=== PATIENT | female | born 1955 | race African-American/Black ===

== ENCOUNTER 2018-04-19 04:59 | Emergency (ER) | payer MEDICARE ==
[2018-04-19] MEDS ORDERED: fentaNYL* 50 MCG/ML 2 ML VIAL (100 MCG VIAL) IV SLOW PU ONE (05:20)
[2018-04-19] MEDS ORDERED: Ondansetron INJ* 2 MG/ML VIAL IV ONE (05:20)
[2018-04-19] MEDS ORDERED: NS 0.9% 1000 ML* 1,000 ML IV ONE (05:21)
--- NOTE | 2018-04-19 05:25 | ED ---
GI/ HPI - HPI Summary HPI Summary: A 62 y/o female brought in by [facility] ambulance presents to [facility] with a chief complaint of N/V since 01:00 04/19/18. She also c/o upper abdominal pain. She claims that she is on blood thinners for Afib. She takes aspirin. Her pain does not radiate to her back. She is unsure if her gallbladder was removed. She reports eating English food [employer]. She also claims that her pain is more relaxed in the ED. - History of Current Complaint Chief Complaint: EDNauseaVomitDiarrh Time Seen by Provider: 04/19/18 05:12 Stated Complaint: ABD PAIN Hx Obtained From: Patient Onset/Duration: Started Hours Ago, Still Present Timing: Constant, Lasting Hours Severity: Mild Current Severity: Mild Pain Intensity: 0 - out of 10 Location of Pain: RUQ Pain Characteristics: Unable to describe Associated Signs and Symptoms: Positive: Abdominal Pain Aggravating Factor(s): Nothing Alleviating Factor(s): Nothing - Additional Pertinent History Primary Care Physician: RAJNI - Allergy/Home Medications Allergies/Adverse Reactions: Allergies Allergy/AdvReac Type Severity Reaction Status Date / Time codeine Allergy Hives Verified 04/19/18 05:14 ketorolac Allergy Hives Verified 04/19/18 05:14 latex Allergy Rash Verified 04/19/18 05:14 Perfume Allergy Rash Verified 06/15/14 10:50 tramadol Allergy Hives Verified 04/19/18 05:14 PMH/Surg Hx/FS Hx/Imm Hx Endocrine/Hematology History: Denies: Hx Anticoagulant Therapy, Hx Diabetes, Hx Thyroid Disease Cardiovascular History: Reports: Hx Angina, Hx Hypercholesterolemia, Hx Hypertension Denies: Hx Coronary Artery Disease, Hx Myocardial Infarction, Hx Valvular Heart Disease Respiratory History: Reports: Hx Asthma Denies: Hx Chronic Obstructive Pulmonary Disease (COPD) GI History: Denies: Hx Ulcer Musculoskeletal History: Reports: Hx Arthritis - Ankle/Foot Sensory History: Reports: Hx Contacts or Glasses Opthamlomology History: Reports: Hx Contacts or Glasses Neurological History: Reports: Hx Migraine Psychiatric History: Reports: Hx Inpatient Treatment, Other Psychiatric Issues/ Disorders - History of psychotic disorder Denies: Hx Anxiety, Hx Attention Deficit Hyperactivity Disorder, Hx Eating Disorder, Hx Depression, Hx Panic Disorder, Hx Post Traumatic Stress Disorder, Hx Community Mental Health Tx, Hx Schizophrenia, Hx Bipolar Disorder, Hx Suicide Attempt, Hx of Violent Episodes Against Others, Hx Substance Abuse - Cancer History Hx Chemotherapy: No Hx Radiation Therapy: No - Immunization History Date of Tetanus Vaccine: PT STATES UNSURE Date of Influenza Vaccine: PT STATES UNSURE Infectious Disease History: No Infectious Disease History: Denies: Hx Clostridium Difficile, Hx Hepatitis, Hx Human Immunodeficiency Virus (HIV), Hx of Known/Suspected MRSA, Hx Shingles, Hx Tuberculosis, Hx Known/ Suspected VRE, Hx Known/Suspected VRSA, History Other Infectious Disease, Traveled Outside the [place] in Last 30 Days - Social History Alcohol Use: Rare Substance Use Type: Reports: None Smoking Status (MU): Former Smoker Review of Systems Negative: Shortness Of Breath Positive: Abdominal Pain, Vomiting, Nausea All Other Systems Reviewed And Are Negative: Yes Physical Exam - Summary Physical Exam Summary: VITAL SIGNS: Reviewed. GENERAL: Patient is a well-developed and nourished FEMALE who is lying comfortable in the stretcher. Patient is not in any acute respiratory distress. HEAD AND FACE: No signs of trauma. No ecchymosis, hematomas or skull depressions. No sinus tenderness. EYES: PERRLA, EOMI x 2, No injected conjunctiva, no nystagmus. EARS: Hearing grossly intact. Ear canals and tympanic membranes are within normal limits. MOUTH: Oropharynx within normal limits. NECK: Supple, trachea is midline, no adenopathy, no JVD, no carotid bruit, no c- spine tenderness, neck with full ROM. CHEST: Symmetric, no tenderness at palpation LUNGS: Clear to auscultation bilaterally. No wheezing or crackles. CVS: tachycardic with irregular heartbeat, S1 and S2 present, no murmurs or gallops appreciated. ABDOMEN: RUQ tenderness. No signs of distention. No rebound no guarding, and no masses palpated. Bowel sounds are normal. EXTREMITIES: FROM in all major joints, no edema, no cyanosis or clubbing. NEURO: Alert and oriented x 3. No acute neurological deficits. Speech is normal and follows commands. SKIN: Dry and warm Triage Information Reviewed: Yes Vital Signs On Initial Exam: Initial Vitals Pulse Resp BP Pulse Ox 112 19 153/78 95 04/19/18 04:59 04/19/18 04:59 04/19/18 04:59 04/19/18 04:59 Vital Signs Reviewed: Yes Diagnostics - Vital Signs Vital Signs Temp Pulse Resp BP Pulse Ox 04/19/18 05:14 110 20 95 04/19/18 05:01 99.8 F 111 20 153/78 96 04/19/18 04:59 112 19 153/78 95 - Laboratory Result Diagrams: 04/19/18 05:31 04/19/18 05:31 Lab Statement: Any lab studies that have been ordered have been reviewed, and results considered in the medical decision making process. Re-Evaluation - Re-Evaluation First Eval Re-Evaluation Time: 08:53 Change: Improved Comment: In the ED course the patient was given an GI cocktail. After the medications the patients symptoms have significantly improved. Since the blood work, and the CT of the abdomen and the right upper quadrant ultrasound shows no acute significant abnormality the patient will be discharged home with follow-up with PCP. The patient is hemolyticus stable alert oriented 3. I discussed all the findings and test results with the patient. Patient was instructed to return to the emergency room immediately if any of the symptoms return or worsens. Plan of care was discussed with the patient and understands and agrees. All questions were answered at patient satisfaction. There were no further complaints or concerns. Lung exam before discharge: CTA B/L. Good air exchange. No wheezing or crackles heard. CVS: S1 and S2 present. No murmurs appreciated. Patient is alert and oriented x 3. Patient is hemodynamically stable. Patient will be discharged home with follow up PCP in the next 2-3 day GIGU Course/Dx - Course Course Of Treatment: A 62 y/o female brought in by [facility] ambulance presents to [facility] with a chief complaint of N/V since 01:00 04/19/18. The physical exam revealed RUQ tenderness and that the patient was tachycardic with irregular heartbeat. Lab results were obtained and WNL. In the ED course she was given Zofran IV, Fentanyl IV and Iohexol (contrast) IV. The patient will be signed out to Dr. Gunter upon shift change at 07:00 04/19/[address] abdomen/pelvis. - Diagnoses Provider Diagnoses: Enteritis Discharge - Sign-Out/Discharge Documenting (check all that apply): Sign-Out Patient Signing out patient TO: David Gunter - Pending CT abdomen/pelvis - Discharge Plan Condition: Stable Disposition: HOME Prescriptions: Omeprazole CAP (NF) [Prilosec CAP* 20 MG] 20 mg PO BEDTIME PRN #20 cap.dr PRN Reason: Dyspepsia Ondansetron TAB* [Zofran 4 MG Tab*] 4 mg PO Q6H PRN #10 tab PRN Reason: Vomiting Patient Education Materials: Enteritis (ED) Referrals: Claudia Tineo MD [Primary Care Provider] - 3 Days Additional Instructions: RETURN TO ED WITH ANY NEW OR WORSENING SYMPTOMS. FOLLOW UP WITH PRIMARY CARE PHYSICIAN IN 2-3 DAYS. - Billing Disposition and Condition Condition: STABLE Disposition: Home - Attestation Statements Document Initiated by Katrinibe: Yes Documenting Scribe: Teodoro Arce Provider For Whom Leelee is Documenting (Include Credential): Freddy Araujo MD Scribe Attestation: Teodoro Barahona scribed for Freddy Araujo MD on 04/20/18 at 0531. Scribe Documentation Reviewed: Yes Provider Attestation: The documentation as recorded by the Teodoro kirk accurately reflects the service I personally performed and the decisions made by Evie riojas MD Status of Scribmaryellen Document: Viewed
[2018-04-19 05:41] LABS: ABS Basophils 0 10^3/ul (0-0.2); ABS Eosinophils 0.1 10^3/ul (0-0.6); ABS Lymphocytes 0.5 10^3/ul (1.0-4.8); ABS Monocytes 0.4 10^3/ul (0-0.8); ABS Nucleated RBC 0 10^3/ul; Eosinophil % 0.9 %; Hematocrit 44 % (35-47); Hemoglobin 14.8 g/dl (12.0-16.0); Lymphocyte % 3.3 %; Mean Corpuscular HGB Conc 34 g/dl (31-36); Mean Corpuscular Hemoglobin 28 pg (27-31); Mean Corpuscular Volume 84 fL (80-97); Mean Platelet Volume 7.3 fL (7.4-10.4); Nucleated Red Blood Cells % 0.1; Platelet Count 278 10^3/ul (150-450); Red Blood Count 5.25 10^6/ul (4.00-5.40); Red Cell Distribution Width 15 % (10.5-15); White Blood Count 15.1 10^3/ul (3.5-10.8)
[2018-04-19 05:51] LABS: Activated Partial Thrombo Time 26.9 seconds (26.0-36.3); INR 0.95 (0.77-1.02)
[2018-04-19 06:00] LABS: Albumin 4.2 g/dL (3.2-5.2); Albumin/Globulin Ratio 1.6 (1-3); BUN/Creatinine Ratio 23.6 (8-20); C Reactive Protein 14.36 mg/L (<8.01); Calcium 9.5 mg/dL (8.6-10.3); EGFR Non-African American 63.9 (>60); Globulin 2.7 g/dL (2-4); Total Bilirubin 0.4 mg/dL (0.2-1.0); Total Protein 6.9 g/dL (6.4-8.9)
[2018-04-19] MEDS ORDERED: Iohexol 300* (CONTRAST) 10 ML SDV IV ONE (06:33)
--- NOTE | 2018-04-19 07:07 | ED ---
Progress - Progress Note Progress Note: Patient is received as a sign out from Dr. Araujo to Dr. Gunter at 0700 04/19/18 shift change pending abd/pel CT. 0715 - Patient reports 7/10 abdominal pain at this time. She states she woke up at 0100 today with pain, notes she had Czech food last night. On physical exam RUQ, epigastric tenderness is noted, patient is tachycardic as well. CT ABD/PEL IMPRESSION: Prominent fluid filled proximal small bowel loop with mucosal thickening which may be due to enteritis. This report was reviewed by ED physician. ABDOMEN US IMPRESSION: FATTY INFILTRATION OF THE LIVER THIS REPORT WAS REVIEWED BY ED PHYSICIAN. - EKG/XRAY/CT CT: see above Re-Evaluation - Re-Evaluation First Eval Re-Evaluation Time: 08:53 Change: Improved Comment: In the ED course the patient was given an GI cocktail. After the medications the patients symptoms have significantly improved. Since the blood work, and the CT of the abdomen and the right upper quadrant ultrasound shows no acute significant abnormality the patient will be discharged home with follow-up with PCP. The patient is hemolyticus stable alert oriented 3. I discussed all the findings and test results with the patient. Patient was instructed to return to the emergency room immediately if any of the symptoms return or worsens. Plan of care was discussed with the patient and understands and agrees. All questions were answered at patient satisfaction. There were no further complaints or concerns. Lung exam before discharge: CTA B/L. Good air exchange. No wheezing or crackles heard. CVS: S1 and S2 present. No murmurs appreciated. Patient is alert and oriented x 3. Patient is hemodynamically stable. Patient will be discharged home with follow up PCP in the next 2-3 day Course/Dx - Course Course Of Treatment: This patient was signed out by Dr. Araujo at shift change. This patient is a 62-year-old female who presents to the urgent department with chief complaint of having right upper quadrant and epigastric pain. Patient is awaiting for abd/pel CT results. The patient reports that she still in pain, severity 7 out of 10 in the right upper quadrant and epigastric area. ABdominal and pelvic CT IMPRESSION: Prominent fluid filled proximal small bowel loop with mucosal thickening which. may be due to enteritis. RUQ U/S impression: fatty liver. In the ED course the patient was given an GI cocktail. After the medications the patients symptoms have significantly improved. Since the blood work, and the CT of the abdomen and the right upper quadrant ultrasound shows no acute significant abnormality the patient will be discharged home with follow-up with PCP. The patient is hemolyticus stable alert oriented 3. I discussed all the findings and test results with the patient. Patient was instructed to return to the emergency room immediately if any of the symptoms return or worsens. Plan of care was discussed with the patient and understands and agrees. All questions were answered at patient satisfaction. There were no further complaints or concerns. Lung exam before discharge: CTA B/L. Good air exchange. No wheezing or crackles heard. CVS: S1 and S2 present. No murmurs appreciated. Patient is alert and oriented x 3. Patient is hemodynamically stable. Patient will be discharged home with follow up PCP in the next 2-3 days - Diagnoses Provider Diagnoses: Enteritis Discharge - Sign-Out/Discharge Documenting (check all that apply): Patient Departure - DISCHARGE - Discharge Plan Condition: Stable Disposition: HOME Prescriptions: Omeprazole CAP (NF) [Prilosec CAP* 20 MG] 20 mg PO BEDTIME PRN #20 cap.dr PRN Reason: Dyspepsia Ondansetron TAB* [Zofran 4 MG Tab*] 4 mg PO Q6H PRN #10 tab PRN Reason: Vomiting Patient Education Materials: Enteritis (ED) Referrals: Claudia Tineo MD [Primary Care Provider] - 3 Days Additional Instructions: RETURN TO ED WITH ANY NEW OR WORSENING SYMPTOMS. FOLLOW UP WITH PRIMARY CARE PHYSICIAN IN 2-3 DAYS. - Billing Disposition and Condition Condition: STABLE Disposition: Home - Attestation Statements Document Initiated by Leelee: Yes Documenting Scribe: MYA TSANG Provider For Whom Leelee is Documenting (Include Credential): WILBERT GUNTER MD Scribe Attestation: MYA Barahona scribed for WILBERT GUNTER MD on 04/23/18 at 0739. Scribe Documentation Reviewed: Yes Provider Attestation: The documentation as recorded by the MYA kirk accurately reflects the service I personally performed and the decisions made by me, WILBERT GUNTER MD Status of Scribe Document: Viewed
[2018-04-19 07:46] LABS: Urine Appearance Clear; Urine Bacteria Absent (Absent); Urine Bilirubin Negative (Negative); Urine Blood Negative (Negative); Urine Color Straw; Urine Glucose Negative (Negative); Urine Ketones Negative (Negative); Urine Nitrite Negative (Negative); Urine Protein Negative (Negative); Urine Red Blood Cell Absent (Absent); Urine Specific Gravity > 1.060 (1.010-1.030); Urine Urobilinogen Negative (Negative); Urine White Blood Cell Trace(0-5/hpf) (Absent)
[2018-04-19] MEDS ORDERED: Lidocaine 2% VISCOUS* 15 ML UDC PO ONE (08:05)
[2018-04-19] MEDS ORDERED: Al Hydrox/Mg Hydrox/Simet LIQ* 30 ML UDC PO ONE (08:05)
[2018-04-19 09:06] VITALS: BP 126/75
--- NOTE | 2018-04-21 05:51 | ED ---
Progress - Progress Note Progress Note: Patient is received as a sign out from Dr. Araujo to Dr. Gunter at 0700 04/19/18 shift change pending abd/pel CT. 0715 - Patient reports 7/10 abdominal pain at this time. She states she woke up at 0100 today with pain, notes she had Greek food last night. On physical exam RUQ, epigastric tenderness is noted, patient is tachycardic as well. CT ABD/PEL IMPRESSION: Prominent fluid filled proximal small bowel loop with mucosal thickening which may be due to enteritis. This report was reviewed by ED physician. ABDOMEN US IMPRESSION: FATTY INFILTRATION OF THE LIVER THIS REPORT WAS REVIEWED BY ED PHYSICIAN. UPDATE: Patient's preliminary urine culture reveals greater than 100,000 Escherichia coli. She was diagnosed with enteritis and no antibiotics were initiated. Final results pending. - EKG/XRAY/CT CT: see above Re-Evaluation - Re-Evaluation First Eval Re-Evaluation Time: 08:53 Change: Improved Comment: In the ED course the patient was given an GI cocktail. After the medications the patients symptoms have significantly improved. Since the blood work, and the CT of the abdomen and the right upper quadrant ultrasound shows no acute significant abnormality the patient will be discharged home with follow-up with PCP. The patient is hemolyticus stable alert oriented 3. I discussed all the findings and test results with the patient. Patient was instructed to return to the emergency room immediately if any of the symptoms return or worsens. Plan of care was discussed with the patient and understands and agrees. All questions were answered at patient satisfaction. There were no further complaints or concerns. Lung exam before discharge: CTA B/L. Good air exchange. No wheezing or crackles heard. CVS: S1 and S2 present. No murmurs appreciated. Patient is alert and oriented x 3. Patient is hemodynamically stable. Patient will be discharged home with follow up PCP in the next 2-3 day Course/Dx - Course Course Of Treatment: A 62 y/o female brought in by [facility] ambulance presents to [facility] with a chief complaint of N/V since 01:00 04/19/18. The physical exam revealed RUQ tenderness and that the patient was tachycardic with irregular heartbeat. Lab results were obtained and WNL. In the ED course she was given Zofran IV, Fentanyl IV and Iohexol (contrast) IV. The patient will be signed out to Dr. Gunter upon shift change at 07:00 04/19/[address] abdomen/pelvis. - Diagnoses Provider Diagnoses: Enteritis Discharge - Sign-Out/Discharge Documenting (check all that apply): Post-Discharge Follow Up - Discharge Plan Condition: Stable Disposition: HOME Prescriptions: Omeprazole CAP (NF) [Prilosec CAP* 20 MG] 20 mg PO BEDTIME PRN #20 cap.dr PRN Reason: Dyspepsia Ondansetron TAB* [Zofran 4 MG Tab*] 4 mg PO Q6H PRN #10 tab PRN Reason: Vomiting Patient Education Materials: Enteritis (ED) Referrals: Claudia Tineo MD [Primary Care Provider] - 3 Days Additional Instructions: RETURN TO ED WITH ANY NEW OR WORSENING SYMPTOMS. FOLLOW UP WITH PRIMARY CARE PHYSICIAN IN 2-3 DAYS. - Billing Disposition and Condition Condition: STABLE Disposition: Home
--- NOTE | 2018-04-22 08:05 | ED ---
Progress - Progress Note Progress Note: Patient is received as a sign out from Dr. Araujo to Dr. Gunter at 0700 04/19/18 shift change pending abd/pel CT. 07 - Patient reports 7/10 abdominal pain at this time. She states she woke up at 0100 today with pain, notes she had Indonesian food last night. On physical exam RUQ, epigastric tenderness is noted, patient is tachycardic as well. CT ABD/PEL IMPRESSION: Prominent fluid filled proximal small bowel loop with mucosal thickening which may be due to enteritis. This report was reviewed by ED physician. ABDOMEN US IMPRESSION: FATTY INFILTRATION OF THE LIVER THIS REPORT WAS REVIEWED BY ED PHYSICIAN. UPDATE: Patient's preliminary urine culture reveals greater than 100,000 Escherichia coli. She was diagnosed with enteritis and no antibiotics were initiated. Final results pending. UPDATE: Patient's final urine culture reveals near pansensitive results except for nitrofurantoin as being indeterminate as an effective antibiotic treatment. After reading through patient's note, it appears she was diagnosed with enteritis and d/c'd with supportive care (PPI and zofran). She did have wbc's of 15 w/ Left shift, CRP 15 and was tachycardic with nausea and vomiting. Notes indicate she received zofran,fentanyl initially but her symptoms improved with the GI cocktail. Note does not indicate any signs or symptoms of UTI or pyelonephritis and her UA revealed trace leukocytes and squamos cells w/ a high specific gravity. Patient could have urinary tract infection eliel given the high count of e. coli cells however she also could have contamination as she was having diarrhea at the time and U/A appears to be contaminated. If she has UTI sx, would start anbx however if not, may refrain to prevent worsening of diarrhea. Called pt to update results - she states she is feeling better other than a little woozy. Denies nausea, vomiting, diarrhea, pain, dysuria, urinary frequency, urinary urgency, flank pain, suprapubic pain, hematuria, fevers, chills. Reports overall she is feeling better from her visit. Spoke with Dr. Tineo, her PCP, yesterday who also updated her about these urine findings and they discussed that they would avoid antibiotics at this time. Patient has follow-up with Dr. Tineo on Monday. She is aware danger signs and symptoms of when to return to the emergency department. No further action at this time. - EKG/XRAY/CT CT: see above Re-Evaluation - Re-Evaluation First Eval Re-Evaluation Time: 08:53 Change: Improved Comment: In the ED course the patient was given an GI cocktail. After the medications the patients symptoms have significantly improved. Since the blood work, and the CT of the abdomen and the right upper quadrant ultrasound shows no acute significant abnormality the patient will be discharged home with follow-up with PCP. The patient is hemolyticus stable alert oriented 3. I discussed all the findings and test results with the patient. Patient was instructed to return to the emergency room immediately if any of the symptoms return or worsens. Plan of care was discussed with the patient and understands and agrees. All questions were answered at patient satisfaction. There were no further complaints or concerns. Lung exam before discharge: CTA B/L. Good air exchange. No wheezing or crackles heard. CVS: S1 and S2 present. No murmurs appreciated. Patient is alert and oriented x 3. Patient is hemodynamically stable. Patient will be discharged home with follow up PCP in the next 2-3 day Course/Dx - Course Course Of Treatment: A 62 y/o female brought in by [facility] ambulance presents to [facility] with a chief complaint of N/V since 01:00 04/19/18. The physical exam revealed RUQ tenderness and that the patient was tachycardic with irregular heartbeat. Lab results were obtained and WNL. In the ED course she was given Zofran IV, Fentanyl IV and Iohexol (contrast) IV. The patient will be signed out to Dr. Gunter upon shift change at 07:00 04/19/[address] abdomen/pelvis. - Diagnoses Provider Diagnoses: Enteritis Discharge - Sign-Out/Discharge Documenting (check all that apply): Post-Discharge Follow Up - Discharge Plan Condition: Stable Disposition: HOME Prescriptions: Omeprazole CAP (NF) [Prilosec CAP* 20 MG] 20 mg PO BEDTIME PRN #20 cap.dr PRN Reason: Dyspepsia Ondansetron TAB* [Zofran 4 MG Tab*] 4 mg PO Q6H PRN #10 tab PRN Reason: Vomiting Patient Education Materials: Enteritis (ED) Referrals: Claudia Tineo MD [Primary Care Provider] - 3 Days Additional Instructions: RETURN TO ED WITH ANY NEW OR WORSENING SYMPTOMS. FOLLOW UP WITH PRIMARY CARE PHYSICIAN IN 2-3 DAYS. - Billing Disposition and Condition Condition: STABLE Disposition: Home
== END 2018-04-19 09:06 | disposition home or self-care (01) ==
LOC: ED 04:59
DX: K52.9 Noninfective gastroenteritis and colitis, unspecified (principal); K76.0 Fatty (change of) liver, not elsewhere classified; R10.11 Right upper quadrant pain; Z88.5 Allergy status to narcotic agent; Z91.040 Latex allergy status; Z87.891 Personal history of nicotine dependence
CPT/HCPCS: 36415; 74177; 76705; 80053; 81003; 81015; 82150; 83690; 85025; 85610; 85730; 86140; 87077; 87086; 87186; 96361; 96374; 99283; A9270-GY; J2405; Q9967